=== PATIENT | female | born 1955 | race Caucasian/White ===

== ENCOUNTER 2022-02-13 01:22 | Emergency (ER) | payer MEDICARE, OTHER ==
--- NOTE | 2022-02-13 01:28 | ERPHSYRPT ---
- History of Present Illness Time Seen by Provider: 02/13/22 01:28 Source: patient Exam Limitations: no limitations Physician History: The patient is a 66-year-old female with a reported past medical significant for psoriasis for which she follows with a foreign policy officer as an outpatient in addition to her primary care provider presents with a chief complaint of a rash and pruritus and inability to sleep. Of note, the patient states that she has had a rash to both her palms of her soles and feet that is been present for some time. She was seen in the [facility] emergency department on May 06 and it was thought that maybe there was a bacterial component to her rash and was prescribed an antibiotic cream that she has been applying with no relief. She also apparently was given prednisone by her primary care provider to help with her rash, specifically the rash to her face. She has been applying steroid cream however she is unable to do this because it starts to burn. She states she just wants to sleep. The patient takes Ativan for anxiety. She drinks on occasion but not heavily and apparently has a medication prescribed to her by her foreign policy officer but this will need prior authorization from the sounds of the patient's description and cannot be dispensed for 3 months until arrives. She denies shortness of breath, nausea, vomiting, any bites or stings or any additional new medications prior to the onset of her symptoms. She denies diarrhea, lightheadedness or syncope. Allergies/Adverse Reactions: Sulfa (Sulfonamide Antibiotics) [Sulfa(Sulfonamide Antibiotics)] Allergy (Mild, Verified 02/13/22 01:39) Home Medications: Ciclopirox Olamine [Ciclodan] 90 gm TP BID 02/13/22 [History] Lorazepam [Ativan] 1 tab PO BID PRN PRN 02/13/22 [History] Montelukast Sodium 10 mg [Singulair 10 MG] 1 tab PO DAILY 02/13/22 [History] Triamterene/Hydrochlorothiazid [Triamterene-Hctz 37.5-25 mg Tb] 1 tab PO BID 02/13/22 [History] clindamycin HCL [Clindamycin HCl] 150 mg PO QID 02/13/22 [History] predniSONE [Prednisone] 10 mg PO DAILY 02/13/22 [History] Hx Tetanus, Diphtheria Vaccination/Date Given: Yes (2) Hx Influenza Vaccination/Date Given: No Hx Pneumococcal Vaccination/Date Given: No - Review of Systems Skin: Pruritis, Rash, Dryness, Other (Pruritus) Psychological: Other (Insomnia) All Other Systems: Reviewed and Negative - Past Medical History Pertinent Past Medical History: No - Past Surgical History Past Surgical History: No - Social History Smoking Status: Current every day smoker Exposure to second hand smoke: Yes Drug Use: none - Nursing Vital Signs Nursing Vital Signs: Initial Vital Signs Temperature 97.8 F 02/13/22 01:27 Pulse Rate 118 H 02/13/22 01:27 Respiratory Rate 20 02/13/22 01:27 Blood Pressure 175/112 02/13/22 01:27 O2 Sat by Pulse Oximetry 97 02/13/22 01:27 Pain Scale Pain Intensity 10 - Physical Exam General Appearance: no apparent distress, alert, obese Neck Exam: supple Respiratory Exam: normal breath sounds, lungs clear, No chest tenderness, No respiratory distress Cardiovascular Exam: regular rate/rhythm, normal heart sounds, normal peripheral pulses Pelvic Exam: deferred Rectal Exam: deferred Extremity Exam: normal inspection Neurologic Exam: alert, oriented x 3, cooperative Skin Exam: warm, dry, rash, other (The patient had a erythematous rash noted to the face, eczematous rash noted to the hands with cracking of the webspace to the palmar aspects of the hands in addition to the soles of the feet. She also had a eczematous rash noted to the back and chest wall.), No petechiae, No jaundice SpO2 Interpretation: normal - Course Nursing assessment & vital signs reviewed: Yes Ordered Tests: Medication Summary Discontinued Medications Generic Name Dose Route Start Last Admin Trade Name Vince PRN Reason Stop Dose Admin Hydroxyzine HCl 25 mg 02/13/22 01:52 02/13/22 01:55 Hydroxyzine Hcl 25 Mg Tablet PO 02/13/22 01:53 25 mg STAT STA Administration Hydroxyzine HCl Confirm 02/13/22 01:54 Hydroxyzine Hcl 25 Mg Tablet Administered 02/13/22 01:55 Dose 25 mg .ROUTE .STK-MED ONE - Progress Progress: unchanged Progress Note: 02/13/22 04:15 Nontoxic in appearance. The patient presents with what appears to be eczematous rash versus psoriasis. Her clinical features do not seem consistent with psoriasis. I am suspecting this is really bad eczema that has been poorly treated however she is following with dermatology and outpatient in addition to her primary care provider which I think is appropriate. It appears she is already on oral steroids and has been trying topical creams and lotions but she states this is because of the pain, specifically burning pain to the palm to worsen and therefore she has been avoiding this. I will prescribe Atarax for her to take for her complaint of pruritus and hopefully this will help her sleep. She will be instructed to continue her medication regimen and to follow- up as scheduled with medical affairs manager and primary care provider for further evaluation and management. Counseled pt/family regarding: diagnosis, need for follow-up - Departure Departure Disposition: Home Clinical Impression: Rash Condition: Stable Critical Care Time: No Referrals: KAROL ARBOLEDA MD [Primary Care Provider] - Follow up/PCP as directed Instructions: Skin Rash (DC) Additional Instructions: Please follow-up with your primary care provider as well as your foreign policy officer as scheduled for further evaluation and management of your rash. Prescriptions: Hydroxyzine HCl 25 mg [Atarax 25 mg] 25 mg PO Q8H PRN PRN #30 tablet PRN Reason: Itching
[2022-02-13 01:38] VITALS: O2SAT 98
[2022-02-13] MEDS ORDERED: ATARAX 25 MG PO STA (01:52)
[2022-02-13] MEDS ORDERED: ATARAX 25 MG ONE (01:54)
[2022-02-13 02:05] VITALS: BP 142/91; PULSE 93
== END 2022-02-13 02:04 | disposition home or self-care (01) ==
LOC: ED 01:22
DX: R21 Rash and other nonspecific skin eruption (principal); L29.9 Pruritus, unspecified; L40.9 Psoriasis, unspecified; Z72.0 Tobacco use; Z79.52 Long term (current) use of systemic steroids; Z79.899 Other long term (current) drug therapy
CPT/HCPCS: 99281; A9270-GY